=== PATIENT | male | born 1980 | race Caucasian/White ===

== ENCOUNTER 2021-09-18 03:27 | Inpatient (IN) | payer MEDICAID, OTHER ==
[~2021-09-18] VITALS: Ht 177.8 cm; Wt 74.1 kg
[2021-09-18] MEDS ORDERED: LORazepam 1 MG TAB PO STA (03:51)
[2021-09-18 04:00] LABS: HEMATOCRIT 43.3 % (42.0-52.0); HEMOGLOBIN 15.6 g/dl (13.5-17.5); MEAN CORPUSCULAR HEMOGLOBIN 31.5 pg (27.0-33.0); MEAN CORPUSCULAR VOLUME 87.5 fl (80.0-96.0); PLATELET COUNT, AUTOMATED 251 10^3/uL (150-450); RED BLOOD COUNT 4.95 10^6/uL (4.30-6.10); WHITE BLOOD COUNT 6.4 10^3/uL (4.0-10.0)
[2021-09-18] MEDS ORDERED: SERO1TAB PO (04:32)
[2021-09-18] MEDS ORDERED: SUBO8MIS SL (04:32)
[2021-09-18] MEDS ORDERED: VERA240C PO (04:32)
[2021-09-18] MEDS ORDERED: AMPH1CAP16 PO (04:32)
[2021-09-18 04:40] LABS: ACETAMINOPHEN LEVEL < 2.0 UG/ML (10.0-30.0); ALT/SGPT 39 U/L (12-78); BILIRUBIN,DIRECT 0.2 MG/DL (0.0-0.2); BILIRUBIN,TOTAL 0.5 MG/DL (0.2-1.0); BLOOD UREA NITROGEN 19 MG/DL (7-18); CALCIUM LEVEL 8.8 MG/DL (8.5-10.1); CARBON DIOXIDE LEVEL 30 MEQ/L (21-32); CHLORIDE LEVEL 108 MEQ/L (98-107); CREATININE FOR GFR 0.76 MG/DL (0.70-1.30); ETHYL ALCOHOL (ETHANOL) < 0.003 % (0.000-0.010); GLOMERULAR FILTRATION RATE > 60.0 (>60); GLUCOSE, FASTING 104 MG/DL (70-100); POTASSIUM SERUM 3.7 MEQ/L (3.5-5.1); SALICYLATE LEVEL 1.7 MG/DL (5.0-30.0); SODIUM LEVEL 142 MEQ/L (136-145); TOTAL PROTEIN 7.4 GM/DL (6.4-8.2)
[2021-09-18 04:45] LABS: RSV AMPLIFICATION NEGATIVE (NEGATIVE)
[2021-09-18 07:00] LABS: AMPHETAMINES LEVEL URINE POSITIVE (NEGATIVE); BARBITURATES URINE NEGATIVE (NEGATIVE); BENZODIAZEPINES URINE NEGATIVE (NEGATIVE); CANNABINOIDS URINE POSITIVE (NEGATIVE); COCAINE METABOLITE URINE NEGATIVE (NEGATIVE); METHADONE URINE NEGATIVE (NEGATIVE); OPIATES URINE NEGATIVE (NEGATIVE); PHENCYCLIDINE URINE NEGATIVE (NEGATIVE)
[2021-09-18] MEDS ORDERED: ADDE20TA PO (08:31)
[2021-09-18] MEDS ORDERED: TELM1TAB37 PO (08:31)
[2021-09-18] MEDS ORDERED: HOME MED LIST COMPLETE! XX SCH (08:55)
[2021-09-18] MEDS ORDERED: BUPRENORPHINE/NALOXONE 8-2MG SUBLINGUAL TABLET(SUBOXONE) SL SCH (09:00)
[2021-09-18] MEDS ORDERED: VERAPAMIL 40 MG TAB PO SCH (09:00)
[2021-09-18] MEDS ORDERED: AMPHETAMINE/DEXTROAMPHETAMINE 5 MG *ER* CAPSULE (ADDERALL XR) PO SCH (09:00)
[2021-09-18] MEDS ORDERED: BUPRENORPHINE/NALOXONE 8-2MG SUBLINGUAL TABLET(SUBOXONE) SL PRN (10:35)
[2021-09-18] MEDS ORDERED: ADDERALL 5 MG TAB PO PRN (10:35)
[2021-09-18] MEDS ORDERED: VERAPAMIL 120MG SR TAB PO SCH (10:45)
[2021-09-18] MEDS: BUPRENORPHINE/NALOXONE 8-2MG SUBLINGUAL TABLET(SUBOXONE) SL SCH ×2 (16:27→21:08)
[2021-09-18] MEDS ORDERED: QUEtiapine FUMARATE 100 MG TAB PO ONE (21:00)
[2021-09-19] MEDS ORDERED: UNRESOLVED CLARIFICATION ENTRY XX SCH (00:01)
[2021-09-19] MEDS: BUPRENORPHINE/NALOXONE 8-2MG SUBLINGUAL TABLET(SUBOXONE) SL SCH ×2 (08:45→20:47)
[2021-09-19] MEDS ORDERED: MOM 30ML SUSPENSION UDC PO PRN (12:20)
[2021-09-19] MEDS ORDERED: MAALOX 30 ML SUSP *UDC PO PRN (12:20)
[2021-09-19] MEDS ORDERED: ACETAMINOPHEN TAB 650MG DOSE (2X325MG) PO PRN (12:20)
[2021-09-19 13:16] VITALS: BP 146/82
[2021-09-19] MEDS: traZODone 50 MG TAB PO PRN (20:09)
[2021-09-19] MEDS: VERAPAMIL 120MG SR TAB PO SCH (20:12)
[2021-09-19] MEDS ORDERED: QUEtiapine FUMARATE 100 MG TAB PO SCH ×2 (21:00)
[2021-09-19] MEDS ORDERED: VERAPAMIL 120MG SR TAB PO SCH (21:00)
[2021-09-20 06:13] VITALS: BP 118/59
[2021-09-20] MEDS: BUPRENORPHINE/NALOXONE 8-2MG SUBLINGUAL TABLET(SUBOXONE) SL SCH (08:22)
[2021-09-20] MEDS ORDERED: BUPRENORPHINE/NALOXONE 8-2MG SUBLINGUAL TABLET(SUBOXONE) SL SCH (09:00)
[2021-09-20] MEDS ORDERED: ADDERALL 5 MG TAB PO SCH (12:35)
[2021-09-20] MEDS ORDERED: ADDERALL 5 MG TAB PO PRN (12:50)
[2021-09-20] MEDS ORDERED: hydrOXYzine 50 MG TAB PO PRN (13:00)
[2021-09-20] MEDS ORDERED: QUEtiapine FUMARATE 25 MG TAB PO PRN (13:00)
[2021-09-20] MEDS: ESCITALOPRAM OXALATE 10 MG TAB (LEXAPRO) PO SCH (13:27)
[2021-09-20] MEDS ORDERED: PERCOCET 5MG/325MG TAB PO PRN (17:25)
[2021-09-20] MEDS ORDERED: PERCOCET 5MG/325MG TAB PO ONE (17:25)
[2021-09-20] MEDS ORDERED: IBUPROFEN 400MG TAB PO ONE (17:40)
[2021-09-20] MEDS ORDERED: QUEtiapine FUMARATE 200 MG TAB PO SCH (21:00)
[2021-09-20] MEDS: DICLOFENAC EPOLAMINE 1.3 % PATCH TOP SCH (21:00)
[2021-09-20] MEDS: traZODone 50 MG TAB PO PRN (21:30)
[2021-09-20 21:31] VITALS: BP 153/85
[2021-09-20] MEDS: VERAPAMIL 120MG SR TAB PO SCH (21:31)
[2021-09-20] MEDS: diphenhydrAMINE CREAM 30GM TOP SCH (21:33)
[2021-09-20] MEDS: KETOCONAZOLE 2% CREAM TOP SCH (21:33)
[2021-09-21 05:59] VITALS: BP 137/65
[2021-09-21] MEDS ORDERED: BUPRENORPHINE/NALOXONE 8-2MG SUBLINGUAL TABLET(SUBOXONE) SL SCH (09:00)
[2021-09-21] MEDS: diphenhydrAMINE CREAM 30GM TOP SCH (09:00)
[2021-09-21] MEDS: KETOCONAZOLE 2% CREAM TOP SCH (09:39)
[2021-09-21] MEDS: DICLOFENAC EPOLAMINE 1.3 % PATCH TOP SCH (09:39)
[2021-09-21] MEDS: ESCITALOPRAM OXALATE 10 MG TAB (LEXAPRO) PO SCH (09:39)
[2021-09-21] MEDS ORDERED: KETO2CR TOP (10:09)
[2021-09-21] MEDS ORDERED: QUET200T2 PO (10:09)
[2021-09-21] MEDS ORDERED: DIPHCR TOP (10:09)
[2021-09-21] MEDS ORDERED: TRAZ-252 PO (10:09)
[2021-09-21] MEDS ORDERED: LEXA1TAB PO (10:09)
[2021-09-21] MEDS ORDERED: DICL1PAT6 TOP (10:09)
== END 2021-09-21 11:51 | disposition home or self-care (01) | DRG 755 ==
LOC: M ED 03:27 → M ED INP 09-19 12:20 → M PSY 09-19 12:57
PROVIDERS: ADMIT Student in an Organized Health Care Education/Training Program; ATTEND Student in an Organized Health Care Education/Training Program
DX: F43.10 Post-traumatic stress disorder, unspecified (principal); F63.9 Impulse disorder, unspecified; F90.9 Attention-deficit hyperactivity disorder, unspecified type; F60.89 Other specific personality disorders; Z87.820 Personal history of traumatic brain injury; F15.90 Other stimulant use, unspecified, uncomplicated; F12.90 Cannabis use, unspecified, uncomplicated; R45.850 Homicidal ideations; R45.851 Suicidal ideations; F17.200 Nicotine dependence, unspecified, uncomplicated; Z79.899 Other long term (current) drug therapy; Z20.822 Contact with and (suspected) exposure to COVID-19; R21 Rash and other nonspecific skin eruption; M25.511 Pain in right shoulder